=== PATIENT | female | born 1995 | race Caucasian/White ===

== ENCOUNTER 2018-03-23 12:50 | Emergency (ER) | payer OTHER ==
[~2018-03-23] VITALS: Ht 170.2 cm; Wt 59.0 kg
[~2018-03-23 12:50] MED LIST: CELEXA10 MG PO; FOLIC ACID1 MG PO; KEPPRA 500 MG500 M1 PO; NEXPLANON68 MG SQ; RISPERIDONE0.5 MG PO; TOPAMAX 25 MG T25 M1 PO; TOPAMAX50 MG PO; TRAZODONE HCL50 MG PO; VITAMIN B-1100 M1 PO
[2018-03-23] MEDS ORDERED: KEPPRA750 MG PO (12:55)
[2018-03-23 13:38] LABS: ABSOLUTE EOSINOPHILS 0.1 thou/uL (0.0-0.7); ABSOLUTE LYMPHOCYTES 1.5 thou/uL (0.8-5.3); ABSOLUTE MONOCYTES 0.4 thou/uL (0.0-1.2); ABSOLUTE NEUTROPHILS 3.7 thou/uL (1.6-8.1); BASOPHILS 0.5 %; EOSINOPHILS 1.4 %; HEMOGLOBIN 13.3 gm/dL (12.0-15.0); LYMPHOCYTES 26.9 %; MCHC 33.2 g/dL (28.0-37.0); MCV 93.3 fL (80.0-100.0); NUCLEATED RBCS 0 /100WBC; PLATELET COUNT* 203 thou/uL (150-400); POLYS 64.2 %; RBC 4.29 mil/uL (4.20-5.00); WBC 5.7 thou/uL (4.0-11.0)
[2018-03-23 13:45] LABS: CALCIUM 8.8 mg/dL (8.5-10.1); CREATININE 0.8 mg/dL (0.6-1.3); POTASSIUM 3.6 mmol/L (3.5-5.1)
[2018-03-23 13:50] LABS: ALBUMIN 3.6 g/dL (3.4-5.0); TOTAL BILIRUBIN 0.2 mg/dL (<0.1-1.0); TOTAL PROTEIN 7.2 g/dL (6.4-8.2)
[2018-03-23 15:22] LABS: URINE BILIRUBIN NEGATIVE (Negative); URINE BLOOD 3+ (Negative); URINE CLARITY CLEAR; URINE COLOR YELLOW; URINE GLUCOSE-RANDOM NEGATIVE (Negative); URINE KETONES NEGATIVE (Negative); URINE LEUKOCYTES-REFLEX NEGATIVE (Negative); URINE NITRITE-REFLEX NEGATIVE (Negative); URINE PROTEIN NEGATIVE (Negative); URINE UROBILINOGEN 0.2 E.U./dl (0.2-1.0)
[2018-03-23 15:33] LABS: CASTS None Seen /LPF (None Seen); SQUAMOUS >10 Many /LPF (0-3)
[2018-03-23 15:34] LABS: AMORPHOUS PHOSPHATES Moderate /LPF (None Seen)
[2018-03-23 15:35] LABS: BACTERIA-REFLEX 1-9 Few /HPF (None Seen); MUCUS None Seen strn/LPF (None Seen); URINE RBC 3-10 Few /HPF (0-2); URINE WBC-REFLEX 0-5 Rare /HPF (0-5)
--- NOTE | 2018-03-23 16:41 | EKG ---
[place] [address] ELECTROCARDIOGRAM REPORT Name: CAITLIN OTERO Room: [facility]#: [id number] Admission: 03/23/18 Attend Phys: Discharge: Date of : [birth year] Report #: [id number] THIS REPORT FOR: //name// [facility] ED Test Date: 2018-03-23 Test Time: 13:21:35 Pat Name: CAITLIN OTERO Department: Room: Gender: F Kitchen Lead: ARGENIS : 1995 Requested By: Vicki Esparza Order Number: [id number] MD: Dennis Zaman Measurements Intervals [place] Rate: 68 P: -43 OH: 119 QRS: 89 QRSD: 103 T: -15 QT: 408 QTc: 434 Interpretive Statements Sinus rhythm Borderline short [place] interval Borderline T abnormalities, inferior leads Compared to ECG 12/18/2014 18:18:13 T-wave abnormality now present Electronically Signed On 03-23-2018 16:41:15 CDT by Dennis Zaman [email or web address] <ELECTRONICALLY SIGNED> By: Dennis Zaman MD, FACC 03/23/18 1641 132 20 Dennis Zaman MD, [facility] /EPI
[2018-03-23] MEDS ORDERED: ANTIVERT25 MG PO (17:28)
[2018-03-23 17:40] VITALS: BP 111/71
== END 2018-03-23 17:42 | disposition home or self-care (01) ==
LOC: M.ERS 12:50
PROVIDERS: Physician Assistant Surgical
DX: R42 Dizziness and giddiness (principal); R55 Syncope and collapse; G43.909 Migraine, unspecified, not intractable, without status migrainosus

== ENCOUNTER 2019-12-28 18:50 | Emergency (ER) | payer OTHER ==
[~2019-12-28] VITALS: Ht 170.2 cm; Wt 63.5 kg
[~2019-12-28 18:50] MED LIST changes: +ANTIVERT25 MG PO; +KEPPRA750 MG PO
[2019-12-28 19:00] VITALS: BP 121/84
[2019-12-28] MEDS ORDERED: LUNESTA3 MG PO (19:06)
[2019-12-28] MEDS ORDERED: LOXAPINE25 MG PO (19:07)
== END 2019-12-28 20:24 | disposition left against medical advice (07) ==
LOC: M.ERS 18:50
DX: Z53.21 Procedure and treatment not carried out due to patient leaving prior to being seen by health care provider (principal)

== ENCOUNTER 2020-08-28 07:49 | Emergency (ER) | payer OTHER ==
[~2020-08-28] VITALS: Ht 170.2 cm; Wt 68.0 kg
[~2020-08-28 07:49] MED LIST changes: +LOXAPINE25 MG PO; +LUNESTA3 MG PO
[2020-08-28 08:35] VITALS: BP 123/81
== END 2020-08-28 08:35 | disposition home or self-care (01) ==
LOC: M.ERS 07:49
DX: S09.90XA Unspecified injury of head, initial encounter (principal); G40.909 Epilepsy, unspecified, not intractable, without status epilepticus; G43.909 Migraine, unspecified, not intractable, without status migrainosus; F31.9 Bipolar disorder, unspecified; F41.9 Anxiety disorder, unspecified; Z79.899 Other long term (current) drug therapy; W10.8XXA Fall (on) (from) other stairs and steps, initial encounter; Y93.89 Activity, other specified; Y92.098 Other place in other non-institutional residence as the place of occurrence of the external cause; Y99.8 Other external cause status